=== PATIENT | male | born 1985 | race Caucasian/White ===

== ENCOUNTER → 2021-02-15 | Outpatient (CLI) | payer OTHER ==
--- NOTE | 2021-02-15 18:34 | RAD ---
Exam: Right ankle 3 views INDICATION: Sprain of right ankle TECHNIQUE: Frontal, lateral and oblique views of the left ankle Comparisons: None FINDINGS: Soft tissue swelling overlying the lateral malleolus. Bone mineralization is normal. No acute or heal ed fractures. Joint spaces are well-maintained. IMPRESSION: Soft tissue swelling overlying the lateral malleolus, without underlying osseous abnormality identifi ed. Electronically signed by: Buddy Dejesus MD (02/15/2021 6:32 PM) [facility]
== END ==
LOC: PMG 17:16
PROVIDERS: ATTEND Nurse Practitioner Family
DX: S93.601A Unspecified sprain of right foot, initial encounter (principal); M25.471 Effusion, right ankle; X58.XXXA Exposure to other specified factors, initial encounter; Y93.89 Activity, other specified; Y92.89 Other specified places as the place of occurrence of the external cause; Y99.8 Other external cause status
CPT/HCPCS: 73610